=== PATIENT | male | born 1995 | race Caucasian/White ===

== ENCOUNTER 2018-02-22 14:49 | Inpatient (IN) | payer OTHER ==
[2018-02-22 16:08] VITALS: BMI 26.9
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
[2018-02-22] MEDS ORDERED: P-EPHED 60MG/TRIPROLIDI 2.5MG TABLET PO PRN (19:05)
[2018-02-22] MEDS ORDERED: IBUPROFEN 400 MG TABLET (FP) PO PRN (19:05)
[2018-02-22] MEDS ORDERED: LOPERAMIDE HCL 2 MG CAPSULE PO PRN (19:05)
[2018-02-22] MEDS ORDERED: MAGNESIUM HYDROX 2400MG/30ML ORAL SUSPENSION 30 ML CUP PO PRN (19:05)
[2018-02-22] MEDS ORDERED: MAG HYDROX/AL HYDROX/SIMETH 30 ML UNIT-DOSE CUP PO PRN (19:05)
[2018-02-22] MEDS ORDERED: MAGNESIUM CITRATE 300 ML BOTTLE PO PRN (19:05)
[2018-02-22] MEDS ORDERED: hydrOXYzine PAMOATE 25 MG CAPSULE (FP) PO PRN (19:05)
[2018-02-22] MEDS ORDERED: ACETAMINOPHEN 325 MG TABLET (FP) PO PRN (19:05)
[2018-02-22] MEDS ORDERED: MENTHOL/PHENOL 1 EACH UD MM PRN (19:05)
[2018-02-22] MEDS ORDERED: guaiFENesin/D-METHORPHAN HB 10 ML UNIT-DOSE CUPS PO PRN (19:05)
[2018-02-22] MEDS ORDERED: chlordiazePOXIDE HCL 25 MG CAPSULE PO ONE (19:08)
[2018-02-22] MEDS ORDERED: chlordiazePOXIDE HCL 25 MG CAPSULE PO PRN (19:08)
[2018-02-22] MEDS: THIAMINE HCL 100 MG TABLET (FP) PO SCH (21:21)
[2018-02-22] MEDS: traZODone HCL 50 MG TABLET (FP) PO SCH (21:21)
[2018-02-22] MEDS: GABAPENTIN 300 MG CAPSULE (FP) PO SCH (21:21)
[2018-02-22] MEDS: NICOTINE POLACRILEX 4 MG GUM BC PRN (21:23)
[2018-02-22] MEDS: chlordiazePOXIDE HCL 25 MG CAPSULE PO SCH (23:25)
[2018-02-23] MEDS: chlordiazePOXIDE HCL 25 MG CAPSULE PO SCH ×3 (05:46→17:37)
[2018-02-23] MEDS: GABAPENTIN 300 MG CAPSULE (FP) PO SCH ×3 (06:09→22:22)
[2018-02-23] MEDS ORDERED: METHADONE HCL 10 MG TABLET ONE (09:49)
[2018-02-23] MEDS ORDERED: METHADONE HCL 40 MG DISPERSABLE TABLET ONE (09:50)
[2018-02-23] MEDS ORDERED: METHADONE HCL 10 MG TABLET PO ONE (10:00)
[2018-02-23] MEDS ORDERED: METHADONE 40 MG, METHADONE 20 MG PO ONE (10:00)
[2018-02-23] MEDS: PRENATAL VITAMINS W/ FOLIC ACID TABLET (FP) PO SCH (10:03)
[2018-02-23 10:31] LABS: HEMOGLOBIN 13.1 GM/dL (11.7-16.9); MCH 28.2 pg (25.7-33.7); MCHC 32.7 g/dl (32.0-35.9); MEAN CELL VOLUME 86.3 fl (80-96); MEAN PLT VOLUME 9.6 fl (7.5-11.1); PLATELET COUNT 273 K/MM3 (134-434); RBC 4.63 M/mm3 (4.00-5.60); RDW 12.1 % (11.9-15.9); WHITE BLOOD COUNT 4.1 K/mm3 (4.0-10.0)
[2018-02-23 10:32] LABS: ALBUMIN 3.7 g/dl (3.4-5.0); ALK PHOS 65 U/L (45-117); ANION GAP 7 MMOL/L (8-16); BILIRUBIN,TOTAL 0.4 mg/dL (0.2-1); BLOOD UREA NITROGEN 10 mg/dL (7-18); CALCIUM 8.9 mg/dL (8.5-10.1); CHLORIDE 102 mmol/L (98-107); CO2 30 mmol/L (21-32); GLUCOSE,RANDOM 100 mg/dL (74-106); POTASSIUM 3.7 mmol/L (3.5-5.1); SGOT/AST 15 U/L (15-37); SGPT/ALT 26 U/L (13-61); SODIUM 138 mmol/L (136-145); TOT PROT 6.4 g/dl (6.4-8.2)
--- NOTE | 2018-02-23 12:09 | PN ---
[facility] CIWA - CIWA Score Nausea/Vomitin-Mild Nausea/No Vomiting Muscle Tremors: 3 Anxiety: 2 Agitation: 3 Paroxysmal Sweats: 1-Minimal Palms Moist Orientation: 1-Uncertain about Date Tacttile Disturbances: 0-None Auditory Disturbances: 0-None Visual Disturbances: 0-None Headache: 1-Very Mild CIWA-Ar Total Score: 12 S Progress Note (SOAP) Subjective: anxiety restlessness tremor sweating trouble sitting still Objective: 02/23/18 12:07 Vital Signs Temperature 98.2 F 02/23/18 09:17 Pulse Rate 55 L 02/23/18 09:17 Respiratory Rate 18 02/23/18 09:17 Blood Pressure 117/61 02/23/18 09:17 O2 Sat by Pulse Oximetry (%) Laboratory Last Values WBC 4.1 K/mm3 (4.0-10.0) 02/23/18 07:00 RBC 4.63 M/mm3 (4.00-5.60) 02/23/18 07:00 Hgb 13.1 GM/dL (11.7-16.9) 02/23/18 07:00 Hct 40.0 % (35.4-49) 02/23/18 07:00 MCV 86.3 fl (80-96) 02/23/18 07:00 MCH 28.2 pg (25.7-33.7) 02/23/18 07:00 MCHC 32.7 g/dl (32.0-35.9) 02/23/18 07:00 RDW 12.1 % (11.9-15.9) 02/23/18 07:00 Plt Count 273 K/MM3 (134-434) 02/23/18 07:00 MPV 9.6 fl (7.5-11.1) 02/23/18 07:00 Sodium 138 mmol/L (136-145) 02/23/18 07:00 Potassium 3.7 mmol/L (3.5-5.1) 02/23/18 07:00 Chloride 102 mmol/L (98-107) 02/23/18 07:00 Carbon Dioxide 30 mmol/L (21-32) 02/23/18 07:00 Anion Gap 7 MMOL/L (8-16) L 02/23/18 07:00 BUN 10 mg/dL (7-18) 02/23/18 07:00 Creatinine 1.0 mg/dL (0.55-1.3) 02/23/18 07:00 Creat Clearance w eGFR > 60 (>60) 02/23/18 07:00 Random Glucose 100 mg/dL (74-106) 02/23/18 07:00 Calcium 8.9 mg/dL (8.5-10.1) 02/23/18 07:00 Total Bilirubin 0.4 mg/dL (0.2-1) 02/23/18 07:00 AST 15 U/L (15-37) 02/23/18 07:00 ALT 26 U/L (13-61) 02/23/18 07:00 Alkaline Phosphatase 65 U/L (45-117) 02/23/18 07:00 Total Protein 6.4 g/dl (6.4-8.2) 02/23/18 07:00 Albumin 3.7 g/dl (3.4-5.0) 02/23/18 07:00 RPR Titer Nonreactive (NONREACTIVE) 02/23/18 07:00 lab noted Assessment: 02/23/18 12:08 withdrawal sx 02/23/18 12:10 methadone maintenance 60 mg po daily Plan: continue detox
[2018-02-23] MEDS: NICOTINE POLACRILEX 4 MG GUM BC PRN (14:12)
[2018-02-23 15:42] LABS: URINE APPEARANCE CLEAR; URINE BILIRUBIN NEGATIVE (<2.0 mg/dL); URINE COLOR YELLOW; URINE GLUCOSE (UA) NEGATIVE (NEGATIVE); URINE KETONE NEGATIVE (NEGATIVE); URINE LEUK ESTERASE TRACE (NEGATIVE); URINE NITRITE NEGATIVE (NEGATIVE); URINE PROTEIN NEGATIVE (NEGATIVE); URINE UROBILINOGEN NEGATIVE mg/dL (0.2-1.0)
[2018-02-23 15:51] LABS: EPI CELLS RARE /HPF (FEW); URINE MUCUS RARE
[2018-02-23] MEDS: chlordiazePOXIDE 5 MG CAPSULE PO SCH (22:22)
[2018-02-23] MEDS: MELATONIN 5 MG TABLETS PO PRN (22:22)
[2018-02-23] MEDS: traZODone HCL 50 MG TABLET (FP) PO SCH (22:22)
[2018-02-23] MEDS: THIAMINE HCL 100 MG TABLET (FP) PO SCH (22:22)
[2018-02-24] MEDS ORDERED: METHADONE HCL 10 MG TABLET ONE (04:13)
[2018-02-24] MEDS ORDERED: METHADONE HCL 40 MG DISPERSABLE TABLET ONE (04:13)
[2018-02-24] MEDS ORDERED: METHADONE HCL 10 MG TABLET PO SCH (06:00)
[2018-02-24] MEDS: chlordiazePOXIDE 5 MG CAPSULE PO SCH ×3 (06:07→16:56)
[2018-02-24] MEDS: METHADONE 40 MG, METHADONE 20 MG PO SCH (06:07)
[2018-02-24] MEDS: GABAPENTIN 300 MG CAPSULE (FP) PO SCH ×3 (06:08→21:52)
[2018-02-24] MEDS: PRENATAL VITAMINS W/ FOLIC ACID TABLET (FP) PO SCH (10:21)
--- NOTE | 2018-02-24 14:32 | PN ---
[facility] CIWA - CIWA Score Nausea/Vomitin-No Nausea/No Vomiting Muscle Tremors: 2 Anxiety: 3 Agitation: 2 Paroxysmal Sweats: 1-Minimal Palms Moist Orientation: 0-Oriented Tacttile Disturbances: 0-None Auditory Disturbances: 0-None Visual Disturbances: 0-None Headache: 2-Mild CIWA-Ar Total Score: 10 S Progress Note (SOAP) Subjective: anxiety restlessness tremor mild gi distress otherwise feeling ok Objective: 02/24/18 14:32 Vital Signs Temperature 97.1 F L 02/24/18 13:10 Pulse Rate 83 02/24/18 13:10 Respiratory Rate 18 02/24/18 13:10 Blood Pressure 115/71 02/24/18 13:10 O2 Sat by Pulse Oximetry (%) Laboratory Last Values WBC 4.1 K/mm3 (4.0-10.0) 02/23/18 07:00 RBC 4.63 M/mm3 (4.00-5.60) 02/23/18 07:00 Hgb 13.1 GM/dL (11.7-16.9) 02/23/18 07:00 Hct 40.0 % (35.4-49) 02/23/18 07:00 MCV 86.3 fl (80-96) 02/23/18 07:00 MCH 28.2 pg (25.7-33.7) 02/23/18 07:00 MCHC 32.7 g/dl (32.0-35.9) 02/23/18 07:00 RDW 12.1 % (11.9-15.9) 02/23/18 07:00 Plt Count 273 K/MM3 (134-434) 02/23/18 07:00 MPV 9.6 fl (7.5-11.1) 02/23/18 07:00 Sodium 138 mmol/L (136-145) 02/23/18 07:00 Potassium 3.7 mmol/L (3.5-5.1) 02/23/18 07:00 Chloride 102 mmol/L (98-107) 02/23/18 07:00 Carbon Dioxide 30 mmol/L (21-32) 02/23/18 07:00 Anion Gap 7 MMOL/L (8-16) L 02/23/18 07:00 BUN 10 mg/dL (7-18) 02/23/18 07:00 Creatinine 1.0 mg/dL (0.55-1.3) 02/23/18 07:00 Creat Clearance w eGFR > 60 (>60) 02/23/18 07:00 Random Glucose 100 mg/dL (74-106) 02/23/18 07:00 Calcium 8.9 mg/dL (8.5-10.1) 02/23/18 07:00 Total Bilirubin 0.4 mg/dL (0.2-1) 02/23/18 07:00 AST 15 U/L (15-37) 02/23/18 07:00 ALT 26 U/L (13-61) 02/23/18 07:00 Alkaline Phosphatase 65 U/L (45-117) 02/23/18 07:00 Total Protein 6.4 g/dl (6.4-8.2) 02/23/18 07:00 Albumin 3.7 g/dl (3.4-5.0) 02/23/18 07:00 Urine Color Yellow 02/22/18 11:45 Urine Appearance Clear 02/22/18 11:45 Urine pH 7.0 (5.0-8.0) 02/22/18 11:45 Ur Specific [place] 1.021 (1.010-1.035) 02/22/18 11:45 Urine Protein Negative (NEGATIVE) 02/22/18 11:45 Urine Glucose (UA) Negative (NEGATIVE) 02/22/18 11:45 Urine Ketones Negative (NEGATIVE) 02/22/18 11:45 Urine Blood Negative (NEGATIVE) 02/22/18 11:45 Urine Nitrite Negative (NEGATIVE) 02/22/18 11:45 Urine Bilirubin Negative (<2.0 mg/dL) 02/22/18 11:45 Urine Urobilinogen Negative mg/dL (0.2-1.0) 02/22/18 11:45 Ur Leukocyte Esterase Trace (NEGATIVE) 02/22/18 11:45 Urine WBC (Auto) <1 /hpf (3-5) 02/22/18 11:45 Urine RBC (Auto) 1 /hpf (0-3) 02/22/18 11:45 Ur Epithelial Cells Rare /HPF (FEW) 02/22/18 11:45 Urine Mucus Rare 02/22/18 11:45 RPR Titer Nonreactive (NONREACTIVE) 02/23/18 07:00 lab noted Assessment: 02/24/18 14:32 withdrawal sx Plan: continue detox
[2018-02-24] MEDS: NICOTINE POLACRILEX 4 MG GUM BC PRN (17:36)
[2018-02-24] MEDS: THIAMINE HCL 100 MG TABLET (FP) PO SCH (21:52)
[2018-02-24] MEDS: traZODone HCL 50 MG TABLET (FP) PO SCH (21:52)
[2018-02-24] MEDS: MELATONIN 5 MG TABLETS PO PRN (21:53)
[2018-02-24] MEDS: chlordiazePOXIDE HCL 10 MG CAPSULE PO SCH (22:16)
[2018-02-25] MEDS ORDERED: METHADONE HCL 40 MG DISPERSABLE TABLET ONE (03:18)
[2018-02-25] MEDS ORDERED: METHADONE HCL 10 MG TABLET ONE (03:18)
[2018-02-25] MEDS: GABAPENTIN 300 MG CAPSULE (FP) PO SCH ×3 (05:44→22:00)
[2018-02-25] MEDS: chlordiazePOXIDE HCL 10 MG CAPSULE PO SCH ×3 (05:44→17:01)
[2018-02-25] MEDS: METHADONE 40 MG, METHADONE 20 MG PO SCH (05:45)
[2018-02-25] MEDS: PRENATAL VITAMINS W/ FOLIC ACID TABLET (FP) PO SCH (10:05)
--- NOTE | 2018-02-25 11:40 | PN ---
S Progress Note (SOAP) Subjective: patient preferred taking methadone 60 mg at 10 am feeling better less tremor little sweat tolerated food and fluid better Objective: 02/25/18 11:43 Vital Signs Temperature 97.7 F 02/25/18 09:51 Pulse Rate 77 02/25/18 09:51 Respiratory Rate 16 02/25/18 09:51 Blood Pressure 123/56 L 02/25/18 09:51 O2 Sat by Pulse Oximetry (%) Laboratory Last Values WBC 4.1 K/mm3 (4.0-10.0) 02/23/18 07:00 RBC 4.63 M/mm3 (4.00-5.60) 02/23/18 07:00 Hgb 13.1 GM/dL (11.7-16.9) 02/23/18 07:00 Hct 40.0 % (35.4-49) 02/23/18 07:00 MCV 86.3 fl (80-96) 02/23/18 07:00 MCH 28.2 pg (25.7-33.7) 02/23/18 07:00 MCHC 32.7 g/dl (32.0-35.9) 02/23/18 07:00 RDW 12.1 % (11.9-15.9) 02/23/18 07:00 Plt Count 273 K/MM3 (134-434) 02/23/18 07:00 MPV 9.6 fl (7.5-11.1) 02/23/18 07:00 Sodium 138 mmol/L (136-145) 02/23/18 07:00 Potassium 3.7 mmol/L (3.5-5.1) 02/23/18 07:00 Chloride 102 mmol/L (98-107) 02/23/18 07:00 Carbon Dioxide 30 mmol/L (21-32) 02/23/18 07:00 Anion Gap 7 MMOL/L (8-16) L 02/23/18 07:00 BUN 10 mg/dL (7-18) 02/23/18 07:00 Creatinine 1.0 mg/dL (0.55-1.3) 02/23/18 07:00 Creat Clearance w eGFR > 60 (>60) 02/23/18 07:00 Random Glucose 100 mg/dL (74-106) 02/23/18 07:00 Calcium 8.9 mg/dL (8.5-10.1) 02/23/18 07:00 Total Bilirubin 0.4 mg/dL (0.2-1) 02/23/18 07:00 AST 15 U/L (15-37) 02/23/18 07:00 ALT 26 U/L (13-61) 02/23/18 07:00 Alkaline Phosphatase 65 U/L (45-117) 02/23/18 07:00 Total Protein 6.4 g/dl (6.4-8.2) 02/23/18 07:00 Albumin 3.7 g/dl (3.4-5.0) 02/23/18 07:00 Urine Color Yellow 02/22/18 11:45 Urine Appearance Clear 02/22/18 11:45 Urine pH 7.0 (5.0-8.0) 02/22/18 11:45 Ur Specific [place] 1.021 (1.010-1.035) 02/22/18 11:45 Urine Protein Negative (NEGATIVE) 02/22/18 11:45 Urine Glucose (UA) Negative (NEGATIVE) 02/22/18 11:45 Urine Ketones Negative (NEGATIVE) 02/22/18 11:45 Urine Blood Negative (NEGATIVE) 02/22/18 11:45 Urine Nitrite Negative (NEGATIVE) 02/22/18 11:45 Urine Bilirubin Negative (<2.0 mg/dL) 02/22/18 11:45 Urine Urobilinogen Negative mg/dL (0.2-1.0) 02/22/18 11:45 Ur Leukocyte Esterase Trace (NEGATIVE) 02/22/18 11:45 Urine WBC (Auto) <1 /hpf (3-5) 02/22/18 11:45 Urine RBC (Auto) 1 /hpf (0-3) 02/22/18 11:45 Ur Epithelial Cells Rare /HPF (FEW) 02/22/18 11:45 Urine Mucus Rare 02/22/18 11:45 RPR Titer Nonreactive (NONREACTIVE) 02/23/18 07:00 lab noted Assessment: 02/25/18 11:44 mild withdrawal sx Plan: continue detox
[2018-02-25] MEDS: NICOTINE POLACRILEX 4 MG GUM BC PRN ×2 (15:27→17:02)
[2018-02-25] MEDS: traZODone HCL 50 MG TABLET (FP) PO SCH (21:59)
[2018-02-25] MEDS: THIAMINE HCL 100 MG TABLET (FP) PO SCH (21:59)
[2018-02-25] MEDS: MELATONIN 5 MG TABLETS PO PRN (22:00)
[2018-02-25] MEDS: chlordiazePOXIDE 5 MG CAPSULE PO SCH (22:00)
[2018-02-26] MEDS: chlordiazePOXIDE 5 MG CAPSULE PO SCH (06:18)
[2018-02-26] MEDS: GABAPENTIN 300 MG CAPSULE (FP) PO SCH (06:18)
[2018-02-26 09:10] VITALS: BP 115/63; PULSE 76; TEMP 98.1
[2018-02-26] MEDS ORDERED: METHADONE HCL 40 MG DISPERSABLE TABLET ONE (09:38)
[2018-02-26] MEDS ORDERED: METHADONE HCL 10 MG TABLET ONE (09:38)
[2018-02-26] MEDS ORDERED: METHADONE 40 MG, METHADONE 20 MG PO SCH (10:00)
[2018-02-26] MEDS: PRENATAL VITAMINS W/ FOLIC ACID TABLET (FP) PO SCH (10:03)
--- NOTE | 2018-02-26 17:29 | DS ---
[facility] Detox Discharge Summary Admission Date: 02/22/18 Discharge Date: 02/26/18 - History Present History: Alcohol Dependence, Cocaine Dependence, Opioid Dependence, MMTP Additional Comments: PATIENT RETURNING HOME FOR TIME BEING TO ATTEND TO PERSONAL AFFAIRS. PATIENT REPORTS THAT HE WILL PURSUE REHAB ADMISSION AT SOME POINT IN THE NEAR FUTURE. PATIENT WAS DISCHARGED FROM DETOX UNIT IN STABLE MEDICAL CONDITION. Pertinent Past History: History of Depression, Nicotine Dependence, M.M.T.P. - Physical Exam Results Vital Signs: Vital Signs Temperature 98.1 F 02/26/18 09:06 Pulse Rate 76 02/26/18 09:06 Respiratory Rate 18 02/26/18 09:06 Blood Pressure 115/63 02/26/18 09:06 O2 Sat by Pulse Oximetry (%) Pertinent Admission Physical Exam Findings: WITHDRAWAL SYMPTOMS. Laboratory Tests 02/22/18 02/23/18 02/23/18 11:45 07:00 07:00 WBC 4.1 RBC 4.63 Hgb 13.1 Hct 40.0 MCV 86.3 MCH 28.2 MCHC 32.7 RDW 12.1 Plt Count 273 MPV 9.6 Sodium 138 Potassium 3.7 Chloride 102 Carbon Dioxide 30 Anion Gap 7 L BUN 10 Creatinine 1.0 Creat Clearance w eGFR > 60 Random Glucose 100 Calcium 8.9 Total Bilirubin 0.4 AST 15 ALT 26 Alkaline Phosphatase 65 Total Protein 6.4 Albumin 3.7 Urine Color Yellow Urine Appearance Clear Urine pH 7.0 Ur Specific [place] 1.021 Urine Protein Negative Urine Glucose (UA) Negative Urine Ketones Negative Urine Blood Negative Urine Nitrite Negative Urine Bilirubin Negative Urine Urobilinogen Negative Ur Leukocyte Esterase Trace Urine WBC (Auto) <1 Urine RBC (Auto) 1 Ur Epithelial Cells Rare Urine Mucus Rare RPR Titer 02/23/18 07:00 WBC RBC Hgb Hct MCV MCH MCHC RDW Plt Count MPV Sodium Potassium Chloride Carbon Dioxide Anion Gap BUN Creatinine Creat Clearance w eGFR Random Glucose Calcium Total Bilirubin AST ALT Alkaline Phosphatase Total Protein Albumin Urine Color Urine Appearance Urine pH Ur Specific [place] Urine Protein Urine Glucose (UA) Urine Ketones Urine Blood Urine Nitrite Urine Bilirubin Urine Urobilinogen Ur Leukocyte Esterase Urine WBC (Auto) Urine RBC (Auto) Ur Epithelial Cells Urine Mucus RPR Titer Nonreactive LABS NOTED. - Treatment Hospital Course: Detox Protocol Followed, Detoxed Safely, Responded well, Discharged Condition Good Patient has Accepted a Rehab Referral to: PATIENT WILL PURSUE REHAB ADMISSION ON HIS OWN IN NEAR FUTURE. - Medication Discharge Medications: Ambulatory Orders Gabapentin [Neurontin -] 300 mg PO TID 02/22/18 hydrOXYzine PAMOATE [Vistaril -] 25 mg PO TID 02/22/18 traZODone HCL [Trazodone HCl] 50 mg PO HS 02/22/18 Methadone [Dolophine -] 60 mg PO DAILY 02/23/18 - Diagnosis (1) Alcohol use disorder Status: Acute (2) Cocaine use disorder Status: Acute (3) Nicotine use disorder Status: Acute (4) Opioid dependence on agonist therapy Status: Chronic (5) Opioid use disorder Status: Acute - AMA Did Patient Leave Against Medical Advice: No
== END 2018-02-26 10:37 | disposition home or self-care (01) | DRG 773 ==
LOC: YASAS 14:49 → Y3N 19:45
PROC: HZ2ZZZZ Detoxification Services for Substance Abuse Treatment (ICD-10-PCS; principal; 2018-02-22)
DX: F10.230 Alcohol dependence with withdrawal, uncomplicated (principal); F11.20 Opioid dependence, uncomplicated; F14.20 Cocaine dependence, uncomplicated; F17.210 Nicotine dependence, cigarettes, uncomplicated
CPT/HCPCS: 36415; 80053; 81003; 81015; 85027; 86593

== ENCOUNTER 2019-08-08 10:21 | Inpatient (IN) | payer OTHER ==
[2019-08-08] MEDS ORDERED: ONDANSETRON *ODT* 4 MG TABLET SL PRN (12:05)
[2019-08-08] MEDS ORDERED: MAG HYDROX/AL HYDROX/SIMETH 30 ML UNIT-DOSE CUP PO PRN (12:05)
[2019-08-08] MEDS ORDERED: NICOTINE POLACRILEX 2 MG GUM BUC PRN (12:05)
[2019-08-08] MEDS ORDERED: BISMUTH SUBSALICYLATE 262 MG/15 ML BTL PO PRN (12:05)
[2019-08-08] MEDS ORDERED: MENTHOL/PHENOL 1 EACH UD MM PRN (12:05)
[2019-08-08] MEDS ORDERED: MAGNESIUM HYDROX 2400MG/30ML ORAL SUSPENSION 30 ML CUP PO PRN (12:05)
[2019-08-08] MEDS ORDERED: ACETAMINOPHEN 325 MG TABLET (FP) PO PRN ×2 (12:05)
[2019-08-08] MEDS ORDERED: MAGNESIUM CITRATE 300 ML BOTTLE PO PRN (12:05)
[2019-08-08] MEDS ORDERED: IBUPROFEN 400 MG TABLET (FP) PO PRN (12:05)
[2019-08-08] MEDS ORDERED: METHOCARBAMOL 500 MG TABLET PO PRN (12:05)
[2019-08-08 12:20] VITALS: BMI 20.5
[2019-08-08] MEDS ORDERED: hydrOXYzine PAMOATE 25 MG CAPSULE (FP) PO PRN (12:35)
[2019-08-08] MEDS ORDERED: hydrOXYzine PAMOATE 25 MG CAPSULE (FP) PO SCH (14:00)
[2019-08-08 14:06] LABS: HEMATOCRIT 36.7 % (35.4-49); HEMOGLOBIN 12.3 GM/dL (11.7-16.9); MCH 27.8 pg (25.7-33.7); MCHC 33.4 g/dl (32.0-35.9); MEAN CELL VOLUME 83.3 fl (80-96); MEAN PLT VOLUME 8.4 fl (7.5-11.1); PLATELET COUNT 277 K/MM3 (134-434); RDW 14.2 % (11.9-15.9); WHITE BLOOD COUNT 5.2 K/mm3 (4.0-10.0)
[2019-08-08 14:13] LABS: ALBUMIN 3.7 g/dl (3.4-5.0); BILIRUBIN,TOTAL 0.4 mg/dL (0.2-1); BLOOD UREA NITROGEN 17.8 mg/dL (7-18); CALCIUM 9.1 mg/dL (8.5-10.1); CREATININE 0.9 mg/dL (0.55-1.3); POTASSIUM 3.5 mmol/L (3.5-5.1); TOT PROT 6.8 g/dl (6.4-8.2)
[2019-08-08] MEDS: PRENATAL VITAMINS W/ FOLIC ACID TABLET (FP) PO SCH (14:35)
[2019-08-08] MEDS: AMOXICILLIN 500 MG CAPSULE (FP) PO SCH ×2 (14:36→22:01)
[2019-08-08] MEDS: NICOTINE 21 MG/24 HOURS TOPICAL PATCH TD SCH (14:37)
[2019-08-08] MEDS: chlordiazePOXIDE HCL 25 MG CAPSULE PO PRN (14:44)
[2019-08-08] MEDS: chlordiazePOXIDE HCL 25 MG CAPSULE PO SCH ×2 (17:33→22:02)
[2019-08-08] MEDS: MELATONIN 5 MG TABLETS PO SCH (22:02)
[2019-08-08] MEDS: THIAMINE HCL 100 MG TABLET (FP) PO SCH (22:02)
[2019-08-08] MEDS: DOXEPIN HCL 50 MG CAPSULE PO SCH (22:02)
[2019-08-09] MEDS: AMOXICILLIN 500 MG CAPSULE (FP) PO SCH ×3 (05:29→22:00)
[2019-08-09] MEDS: chlordiazePOXIDE HCL 25 MG CAPSULE PO SCH ×4 (05:29→22:00)
[2019-08-09] MEDS: METHADONE HCL 40 MG DISPERSABLE TABLET PO SCH (05:30)
[2019-08-09] MEDS: PRENATAL VITAMINS W/ FOLIC ACID TABLET (FP) PO SCH (10:30)
[2019-08-09] MEDS: NICOTINE 21 MG/24 HOURS TOPICAL PATCH TD SCH (10:31)
[2019-08-09] MEDS: chlordiazePOXIDE HCL 25 MG CAPSULE PO PRN (19:47)
[2019-08-09] MEDS: THIAMINE HCL 100 MG TABLET (FP) PO SCH (22:00)
[2019-08-09] MEDS: DOXEPIN HCL 50 MG CAPSULE PO SCH (22:01)
[2019-08-09] MEDS: MELATONIN 5 MG TABLETS PO SCH (22:02)
[2019-08-10] MEDS: chlordiazePOXIDE HCL 25 MG CAPSULE PO SCH ×4 (06:10→23:16)
[2019-08-10] MEDS: METHADONE HCL 40 MG DISPERSABLE TABLET PO SCH (06:11)
[2019-08-10] MEDS: AMOXICILLIN 500 MG CAPSULE (FP) PO SCH ×3 (06:11→23:17)
[2019-08-10] MEDS: PRENATAL VITAMINS W/ FOLIC ACID TABLET (FP) PO SCH (10:11)
[2019-08-10] MEDS: NICOTINE 21 MG/24 HOURS TOPICAL PATCH TD SCH (10:11)
[2019-08-10] MEDS ORDERED: MELATONIN 5 MG TABLETS PO PRN (11:51)
[2019-08-10] MEDS: chlordiazePOXIDE HCL 25 MG CAPSULE PO PRN ×2 (14:38→20:51)
[2019-08-10] MEDS: THIAMINE HCL 100 MG TABLET (FP) PO SCH (23:16)
[2019-08-10] MEDS: DOXEPIN HCL 50 MG CAPSULE PO SCH (23:17)
[2019-08-11] MEDS ORDERED: chlordiazePOXIDE HCL 10 MG CAPSULE PO PRN
[2019-08-11] MEDS: AMOXICILLIN 500 MG CAPSULE (FP) PO SCH ×3 (05:55→22:26)
[2019-08-11] MEDS: chlordiazePOXIDE HCL 10 MG CAPSULE PO SCH ×4 (05:55→22:26)
[2019-08-11] MEDS: METHADONE HCL 40 MG DISPERSABLE TABLET PO SCH (05:56)
[2019-08-11] MEDS ORDERED: chlordiazePOXIDE HCL 25 MG CAPSULE PO ONE (09:21)
[2019-08-11] MEDS ORDERED: DICYCLOMINE HCL 10 MG CAPSULE PO ONE (09:21)
[2019-08-11] MEDS: PRENATAL VITAMINS W/ FOLIC ACID TABLET (FP) PO SCH (10:26)
[2019-08-11] MEDS: NICOTINE 21 MG/24 HOURS TOPICAL PATCH TD SCH (10:26)
[2019-08-11] MEDS: FAMOTIDINE 20 MG TABLET PO SCH ×2 (10:27→22:26)
[2019-08-11] MEDS: THIAMINE HCL 100 MG TABLET (FP) PO SCH (22:26)
[2019-08-11] MEDS: DOXEPIN HCL 50 MG CAPSULE PO SCH (22:26)
[2019-08-12] MEDS ORDERED: chlordiazePOXIDE HCL 10 MG CAPSULE PO SCH (05:00)
[2019-08-12] MEDS: AMOXICILLIN 500 MG CAPSULE (FP) PO SCH (05:52)
[2019-08-12] MEDS: METHADONE HCL 40 MG DISPERSABLE TABLET PO SCH (05:52)
[2019-08-12 06:20] VITALS: BP 118/62
[2019-08-12 08:51] VITALS: PULSE 87; TEMP 97.1
[2019-08-12] MEDS: FAMOTIDINE 20 MG TABLET PO SCH (10:31)
[2019-08-12] MEDS: PRENATAL VITAMINS W/ FOLIC ACID TABLET (FP) PO SCH (10:31)
[2019-08-12] MEDS: NICOTINE 21 MG/24 HOURS TOPICAL PATCH TD SCH (10:31)
[2019-08-12] MEDS ORDERED: chlordiazePOXIDE 5 MG CAPSULE PO ONE (10:58)
[2019-08-13] MEDS ORDERED: chlordiazePOXIDE HCL 10 MG CAPSULE PO ONE (05:00)
== END 2019-08-12 11:41 | disposition other institution (70) | DRG 773 ==
LOC: YASAS 10:21 → Y6N 12:17 → Y3N 08-09 10:58
PROVIDERS: ADMIT Allergy & Immunology; ATTEND Allergy & Immunology
PROC: HZ2ZZZZ Detoxification Services for Substance Abuse Treatment (ICD-10-PCS; principal; 2019-08-08)
DX: F10.230 Alcohol dependence with withdrawal, uncomplicated (principal); F11.20 Opioid dependence, uncomplicated; F14.20 Cocaine dependence, uncomplicated; F17.210 Nicotine dependence, cigarettes, uncomplicated; F19.282 Other psychoactive substance dependence with psychoactive substance-induced sleep disorder; B18.2 Chronic viral hepatitis C; Z62.810 Personal history of physical and sexual abuse in childhood; Z59.0 Homelessness
CPT/HCPCS: 36415; 80053; 85027; 86780; 93005; 93010; Q0162; U0003

== ENCOUNTER 2019-08-12 11:40 | Inpatient (IN) | payer OTHER ==
[2019-08-12] MEDS ORDERED: LOPERAMIDE HCL 2 MG CAPSULE PO PRN (12:29)
[2019-08-12] MEDS ORDERED: IBUPROFEN 400 MG TABLET (FP) PO PRN (12:29)
[2019-08-12] MEDS ORDERED: ACETAMINOPHEN 325 MG TABLET (FP) PO PRN (12:29)
[2019-08-12] MEDS ORDERED: P-EPHED 60MG/TRIPROLIDI 2.5MG TABLET PO PRN (12:29)
[2019-08-12] MEDS ORDERED: NICOTINE POLACRILEX 2 MG GUM BUC PRN (12:29)
[2019-08-12] MEDS ORDERED: MAGNESIUM CITRATE 300 ML BOTTLE PO PRN (12:29)
[2019-08-12] MEDS ORDERED: MAGNESIUM HYDROX 2400MG/30ML ORAL SUSPENSION 30 ML CUP PO PRN (12:29)
[2019-08-12] MEDS ORDERED: guaiFENesin 200 MG/10 ML 10 ML UNIT-DOSE CUPS PO PRN (12:29)
[2019-08-12] MEDS ORDERED: MENTHOL/PHENOL 1 EACH UD MM PRN (12:29)
[2019-08-12] MEDS ORDERED: MAG HYDROX/AL HYDROX/SIMETH 30 ML UNIT-DOSE CUP PO PRN (12:29)
--- NOTE | 2019-08-12 12:29 | HP ---
[facility] Rehab Assess/Revision - Admission History Admitted to Rehab from: [facility] Date of Admission to Rehab: 08/12/2019 - Vital signs Vital Signs: Vital Signs Period Temp Pulse Resp BP Sys/Morgan Pulse Ox Last 24 Hr 96.7 F 87 17 120/68 - Findings Detox History & Physical reviewed: Yes Concur with findings: Yes Inpatient Rehab Admission - Rehab Decision to Admit Inpatient rehab admission?: Yes - Initial Determination Are CD services needed?: Yes Free of communicable disease: Yes Not in need of hospitalization: Yes - Rehab Admission Criteria Previous failed treatment: Yes Poor recovery environment: Yes Comorbidities: Yes Lacks judgement: No Patient is meeting Inpatient Rehab admission criteria:: Yes
[2019-08-12] MEDS: AMOXICILLIN 500 MG CAPSULE (FP) PO SCH ×2 (14:03→21:48)
[2019-08-12] MEDS ORDERED: PT OWN MED DRAWER 7, Y5N ONE (20:49)
[2019-08-12] MEDS: MELATONIN 5 MG TABLETS PO SCH (21:47)
[2019-08-12] MEDS: THIAMINE HCL 100 MG TABLET (FP) PO SCH (21:47)
[2019-08-12] MEDS: DOXEPIN HCL 50 MG CAPSULE PO SCH (21:49)
[2019-08-12] MEDS: FAMOTIDINE 20 MG TABLET PO SCH (21:49)
[2019-08-13] MEDS ORDERED: PT OWN MED DRAWER 7, Y5N ONE ×2 (03:15→19:11)
[2019-08-13] MEDS: METHADONE HCL 40 MG DISPERSABLE TABLET PO SCH (06:57)
[2019-08-13] MEDS: AMOXICILLIN 500 MG CAPSULE (FP) PO SCH ×3 (06:58→21:20)
[2019-08-13] MEDS: NICOTINE 7 MG/24 HOURS TOPICAL PATCH TD SCH (09:36)
[2019-08-13] MEDS: FAMOTIDINE 20 MG TABLET PO SCH ×2 (09:36→21:21)
[2019-08-13] MEDS: PRENATAL VITAMINS W/ FOLIC ACID TABLET (FP) PO SCH (09:36)
[2019-08-13] MEDS: MELATONIN 5 MG TABLETS PO SCH (21:21)
[2019-08-13] MEDS: DOXEPIN HCL 50 MG CAPSULE PO SCH (21:21)
[2019-08-13] MEDS: THIAMINE HCL 100 MG TABLET (FP) PO SCH (21:22)
[2019-08-14] MEDS ORDERED: PT OWN MED DRAWER 7, Y5N ONE ×2 (02:46→18:50)
[2019-08-14] MEDS: AMOXICILLIN 500 MG CAPSULE (FP) PO SCH ×3 (07:10→21:00)
[2019-08-14] MEDS: METHADONE HCL 40 MG DISPERSABLE TABLET PO SCH (07:11)
[2019-08-14] MEDS: NICOTINE 7 MG/24 HOURS TOPICAL PATCH TD SCH (09:11)
[2019-08-14] MEDS: FAMOTIDINE 20 MG TABLET PO SCH ×2 (09:12→21:00)
[2019-08-14] MEDS: PRENATAL VITAMINS W/ FOLIC ACID TABLET (FP) PO SCH (09:12)
[2019-08-14] MEDS ORDERED: METHADONE HCL 40 MG DISPERSABLE TABLET PO SCH (10:00)
[2019-08-14] MEDS: MELATONIN 5 MG TABLETS PO SCH (21:00)
[2019-08-14] MEDS: DOXEPIN HCL 50 MG CAPSULE PO SCH (21:00)
[2019-08-14] MEDS: THIAMINE HCL 100 MG TABLET (FP) PO SCH (21:00)
[2019-08-15] MEDS: AMOXICILLIN 500 MG CAPSULE (FP) PO SCH ×2 (06:26→14:15)
[2019-08-15] MEDS: METHADONE HCL 40 MG DISPERSABLE TABLET PO SCH (06:37)
[2019-08-15] MEDS: PRENATAL VITAMINS W/ FOLIC ACID TABLET (FP) PO SCH (09:34)
[2019-08-15] MEDS: NICOTINE 7 MG/24 HOURS TOPICAL PATCH TD SCH (09:34)
[2019-08-15] MEDS: FAMOTIDINE 20 MG TABLET PO SCH ×2 (09:35→21:31)
[2019-08-15] MEDS ORDERED: PT OWN MED DRAWER 7, Y5N ONE ×4 (13:55→22:05)
--- NOTE | 2019-08-15 14:23 | PN ---
S Progress Note Note: Patient evaluated for white plaque to posterior tongue. Denies pain, sore throat and oral lesions. Vital Signs Temperature 97 F L 08/15/19 06:15 Pulse Rate 85 08/15/19 06:15 Respiratory Rate 16 08/15/19 06:15 Blood Pressure 114/66 08/15/19 06:15 O2 Sat by Pulse Oximetry (%) 96 08/15/19 06:15 PE alert and oriented x 3 skin warm and dry mouth oral mucosa pink and moist, +white plaque to posterior tongue, pharynx reddened A/P: oral thrush Mycelox chloé ordered monitor clinically
[2019-08-15] MEDS: CLOTRIMAZOLE 10 MG TROCHE PO SCH ×2 (18:30→21:31)
[2019-08-15] MEDS: MELATONIN 5 MG TABLETS PO SCH (21:31)
[2019-08-15] MEDS: THIAMINE HCL 100 MG TABLET (FP) PO SCH (21:31)
[2019-08-15] MEDS: DOXEPIN HCL 50 MG CAPSULE PO SCH (23:00)
[2019-08-16] MEDS: CLOTRIMAZOLE 10 MG TROCHE PO SCH ×5 (06:32→21:12)
[2019-08-16] MEDS: METHADONE HCL 40 MG DISPERSABLE TABLET PO SCH (06:32)
[2019-08-16] MEDS ORDERED: PT OWN MED DRAWER 7, Y5N ONE ×2 (08:32→17:10)
[2019-08-16] MEDS: NICOTINE 7 MG/24 HOURS TOPICAL PATCH TD SCH (09:34)
[2019-08-16] MEDS: FAMOTIDINE 20 MG TABLET PO SCH ×2 (09:34→21:12)
[2019-08-16] MEDS: PRENATAL VITAMINS W/ FOLIC ACID TABLET (FP) PO SCH (09:34)
[2019-08-16] MEDS: MELATONIN 5 MG TABLETS PO SCH (21:12)
[2019-08-16] MEDS: THIAMINE HCL 100 MG TABLET (FP) PO SCH (21:12)
[2019-08-16] MEDS: DOXEPIN HCL 50 MG CAPSULE PO SCH (21:13)
[2019-08-17] MEDS ORDERED: PT OWN MED DRAWER 7, Y5N ONE ×3 (02:46→21:09)
[2019-08-17] MEDS: METHADONE HCL 40 MG DISPERSABLE TABLET PO SCH (07:30)
[2019-08-17] MEDS: CLOTRIMAZOLE 10 MG TROCHE PO SCH ×5 (07:30→21:10)
[2019-08-17] MEDS: FAMOTIDINE 20 MG TABLET PO SCH ×2 (09:39→21:09)
[2019-08-17] MEDS: PRENATAL VITAMINS W/ FOLIC ACID TABLET (FP) PO SCH (09:39)
[2019-08-17] MEDS: NICOTINE 7 MG/24 HOURS TOPICAL PATCH TD SCH (09:40)
[2019-08-17] MEDS: THIAMINE HCL 100 MG TABLET (FP) PO SCH (21:09)
[2019-08-17] MEDS: MELATONIN 5 MG TABLETS PO SCH (21:09)
[2019-08-17] MEDS: DOXEPIN HCL 50 MG CAPSULE PO SCH (21:10)
[2019-08-18] MEDS ORDERED: PT OWN MED DRAWER 7, Y5N ONE ×3 (03:14→13:40)
[2019-08-18] MEDS: METHADONE HCL 40 MG DISPERSABLE TABLET PO SCH (06:21)
[2019-08-18] MEDS: CLOTRIMAZOLE 10 MG TROCHE PO SCH ×5 (06:22→21:12)
[2019-08-18] MEDS: FAMOTIDINE 20 MG TABLET PO SCH ×2 (10:39→21:14)
[2019-08-18] MEDS: PRENATAL VITAMINS W/ FOLIC ACID TABLET (FP) PO SCH (10:39)
[2019-08-18] MEDS: NICOTINE 7 MG/24 HOURS TOPICAL PATCH TD SCH (10:39)
[2019-08-18] MEDS: THIAMINE HCL 100 MG TABLET (FP) PO SCH (21:12)
[2019-08-18] MEDS: MELATONIN 5 MG TABLETS PO SCH (21:13)
[2019-08-18] MEDS: DOXEPIN HCL 50 MG CAPSULE PO SCH (21:14)
[2019-08-19] MEDS ORDERED: PT OWN MED DRAWER 7, Y5N ONE ×6 (03:18→22:10)
[2019-08-19] MEDS: CLOTRIMAZOLE 10 MG TROCHE PO SCH ×5 (06:39→21:26)
[2019-08-19] MEDS: METHADONE HCL 40 MG DISPERSABLE TABLET PO SCH (09:06)
[2019-08-19] MEDS: FAMOTIDINE 20 MG TABLET PO SCH ×2 (09:08→21:26)
[2019-08-19] MEDS: NICOTINE 7 MG/24 HOURS TOPICAL PATCH TD SCH (09:08)
[2019-08-19] MEDS: PRENATAL VITAMINS W/ FOLIC ACID TABLET (FP) PO SCH (09:28)
[2019-08-19] MEDS: THIAMINE HCL 100 MG TABLET (FP) PO SCH (21:26)
[2019-08-19] MEDS: MELATONIN 5 MG TABLETS PO SCH (21:26)
[2019-08-19] MEDS: DOXEPIN HCL 25 MG CAPSULE PO SCH (22:10)
[2019-08-20] MEDS ORDERED: PT OWN MED DRAWER 7, Y5N ONE (05:21)
[2019-08-20] MEDS: CLOTRIMAZOLE 10 MG TROCHE PO SCH ×4 (07:17→21:11)
[2019-08-20] MEDS: METHADONE HCL 40 MG DISPERSABLE TABLET PO SCH (09:51)
[2019-08-20] MEDS: PRENATAL VITAMINS W/ FOLIC ACID TABLET (FP) PO SCH (09:54)
[2019-08-20] MEDS: FAMOTIDINE 20 MG TABLET PO SCH ×2 (09:54→21:42)
[2019-08-20] MEDS: NICOTINE 7 MG/24 HOURS TOPICAL PATCH TD SCH (09:55)
[2019-08-20] MEDS: MELATONIN 5 MG TABLETS PO SCH (21:11)
[2019-08-20] MEDS: THIAMINE HCL 100 MG TABLET (FP) PO SCH (21:11)
[2019-08-20] MEDS: DOXEPIN HCL 25 MG CAPSULE PO SCH (21:12)
[2019-08-21] MEDS ORDERED: PT OWN MED DRAWER 7, Y5N ONE ×3 (05:13→21:47)
[2019-08-21] MEDS: CLOTRIMAZOLE 10 MG TROCHE PO SCH ×4 (06:57→21:20)
[2019-08-21] MEDS: NICOTINE 7 MG/24 HOURS TOPICAL PATCH TD SCH (10:14)
[2019-08-21] MEDS: METHADONE HCL 40 MG DISPERSABLE TABLET PO SCH (10:14)
[2019-08-21] MEDS: PRENATAL VITAMINS W/ FOLIC ACID TABLET (FP) PO SCH (10:14)
[2019-08-21] MEDS: FAMOTIDINE 20 MG TABLET PO SCH ×2 (10:14→21:19)
[2019-08-21] MEDS: THIAMINE HCL 100 MG TABLET (FP) PO SCH (21:18)
[2019-08-21] MEDS: MELATONIN 5 MG TABLETS PO SCH (21:18)
[2019-08-21] MEDS: DOXEPIN HCL 25 MG CAPSULE PO SCH (21:19)
[2019-08-22] MEDS ORDERED: PT OWN MED DRAWER 7, Y5N ONE ×2 (05:15→08:37)
[2019-08-22] MEDS: CLOTRIMAZOLE 10 MG TROCHE PO SCH ×2 (07:16→09:47)
[2019-08-22] MEDS: METHADONE HCL 40 MG DISPERSABLE TABLET PO SCH (09:43)
[2019-08-22] MEDS: NICOTINE 7 MG/24 HOURS TOPICAL PATCH TD SCH (09:45)
[2019-08-22] MEDS: FAMOTIDINE 20 MG TABLET PO SCH ×2 (09:45→21:22)
[2019-08-22] MEDS: PRENATAL VITAMINS W/ FOLIC ACID TABLET (FP) PO SCH (09:45)
[2019-08-22] MEDS: THIAMINE HCL 100 MG TABLET (FP) PO SCH (21:22)
[2019-08-22] MEDS: MELATONIN 5 MG TABLETS PO SCH (21:22)
[2019-08-22] MEDS: DOXEPIN HCL 25 MG CAPSULE PO SCH (21:23)
[2019-08-23] MEDS: METHADONE HCL 40 MG DISPERSABLE TABLET PO SCH (09:07)
[2019-08-23] MEDS: NICOTINE 7 MG/24 HOURS TOPICAL PATCH TD SCH (09:08)
[2019-08-23] MEDS: PRENATAL VITAMINS W/ FOLIC ACID TABLET (FP) PO SCH (09:09)
[2019-08-23] MEDS: FAMOTIDINE 20 MG TABLET PO SCH ×2 (09:09→21:38)
[2019-08-23] MEDS ORDERED: PT OWN MED DRAWER 7, Y5N ONE (19:55)
[2019-08-23] MEDS: THIAMINE HCL 100 MG TABLET (FP) PO SCH (21:36)
[2019-08-23] MEDS: MELATONIN 5 MG TABLETS PO SCH (21:36)
[2019-08-23] MEDS: DOXEPIN HCL 25 MG CAPSULE PO SCH (21:37)
[2019-08-24] MEDS: METHADONE HCL 40 MG DISPERSABLE TABLET PO SCH (09:15)
[2019-08-24] MEDS: NICOTINE 7 MG/24 HOURS TOPICAL PATCH TD SCH (09:16)
[2019-08-24] MEDS: PRENATAL VITAMINS W/ FOLIC ACID TABLET (FP) PO SCH (09:16)
[2019-08-24] MEDS: FAMOTIDINE 20 MG TABLET PO SCH ×2 (09:17→21:21)
[2019-08-24] MEDS ORDERED: PT OWN MED DRAWER 7, Y5N ONE (20:08)
[2019-08-24] MEDS: DOXEPIN HCL 25 MG CAPSULE PO SCH (21:21)
[2019-08-24] MEDS: THIAMINE HCL 100 MG TABLET (FP) PO SCH (21:21)
[2019-08-24] MEDS: MELATONIN 5 MG TABLETS PO SCH (21:22)
[2019-08-25] MEDS: PRENATAL VITAMINS W/ FOLIC ACID TABLET (FP) PO SCH (09:12)
[2019-08-25] MEDS: METHADONE HCL 40 MG DISPERSABLE TABLET PO SCH (09:12)
[2019-08-25] MEDS: FAMOTIDINE 20 MG TABLET PO SCH ×2 (09:13→21:16)
[2019-08-25] MEDS: NICOTINE 7 MG/24 HOURS TOPICAL PATCH TD SCH (09:13)
[2019-08-25] MEDS ORDERED: PT OWN MED DRAWER 7, Y5N ONE (10:06)
[2019-08-25] MEDS: DOXEPIN HCL 25 MG CAPSULE PO SCH (21:16)
[2019-08-25] MEDS: THIAMINE HCL 100 MG TABLET (FP) PO SCH (21:16)
[2019-08-25] MEDS: MELATONIN 5 MG TABLETS PO SCH (21:16)
[2019-08-26] MEDS: NICOTINE 7 MG/24 HOURS TOPICAL PATCH TD SCH (09:18)
[2019-08-26] MEDS: FAMOTIDINE 20 MG TABLET PO SCH ×2 (09:18→21:22)
[2019-08-26] MEDS: PRENATAL VITAMINS W/ FOLIC ACID TABLET (FP) PO SCH (09:18)
[2019-08-26] MEDS: METHADONE HCL 40 MG DISPERSABLE TABLET PO SCH (09:19)
[2019-08-26] MEDS: MELATONIN 5 MG TABLETS PO SCH (21:22)
[2019-08-26] MEDS: DOXEPIN HCL 25 MG CAPSULE PO SCH (21:22)
[2019-08-26] MEDS: THIAMINE HCL 100 MG TABLET (FP) PO SCH (21:22)
[2019-08-27] MEDS: NICOTINE 7 MG/24 HOURS TOPICAL PATCH TD SCH (09:27)
[2019-08-27] MEDS: METHADONE HCL 40 MG DISPERSABLE TABLET PO SCH (09:27)
[2019-08-27] MEDS: PRENATAL VITAMINS W/ FOLIC ACID TABLET (FP) PO SCH (09:28)
[2019-08-27] MEDS: FAMOTIDINE 20 MG TABLET PO SCH ×2 (09:29→21:08)
[2019-08-27] MEDS: MELATONIN 5 MG TABLETS PO SCH (21:07)
[2019-08-27] MEDS: THIAMINE HCL 100 MG TABLET (FP) PO SCH (21:08)
[2019-08-27] MEDS: DOXEPIN HCL 25 MG CAPSULE PO SCH (21:08)
[2019-08-28] MEDS: METHADONE HCL 40 MG DISPERSABLE TABLET PO SCH (09:32)
[2019-08-28] MEDS: PRENATAL VITAMINS W/ FOLIC ACID TABLET (FP) PO SCH (09:34)
[2019-08-28] MEDS: NICOTINE 7 MG/24 HOURS TOPICAL PATCH TD SCH (09:34)
[2019-08-28] MEDS: FAMOTIDINE 20 MG TABLET PO SCH ×2 (09:34→21:17)
[2019-08-28] MEDS ORDERED: PT OWN MED DRAWER 7, Y5N ONE (18:29)
[2019-08-28] MEDS: MELATONIN 5 MG TABLETS PO SCH (21:17)
[2019-08-28] MEDS: DOXEPIN HCL 25 MG CAPSULE PO SCH (21:17)
[2019-08-28] MEDS: THIAMINE HCL 100 MG TABLET (FP) PO SCH (21:17)
[2019-08-29] MEDS: PRENATAL VITAMINS W/ FOLIC ACID TABLET (FP) PO SCH (09:32)
[2019-08-29] MEDS: METHADONE HCL 40 MG DISPERSABLE TABLET PO SCH (09:32)
[2019-08-29] MEDS: NICOTINE 7 MG/24 HOURS TOPICAL PATCH TD SCH (09:33)
[2019-08-29] MEDS: FAMOTIDINE 20 MG TABLET PO SCH ×2 (09:33→21:11)
[2019-08-29] MEDS: THIAMINE HCL 100 MG TABLET (FP) PO SCH (21:11)
[2019-08-29] MEDS: DOXEPIN HCL 25 MG CAPSULE PO SCH (21:11)
[2019-08-29] MEDS: MELATONIN 5 MG TABLETS PO SCH (21:12)
[2019-08-30 06:47] VITALS: BP 131/81; PULSE 84; TEMP 98.2
[2019-08-30] MEDS: PRENATAL VITAMINS W/ FOLIC ACID TABLET (FP) PO SCH (09:08)
[2019-08-30] MEDS: METHADONE HCL 40 MG DISPERSABLE TABLET PO SCH (09:08)
[2019-08-30] MEDS: FAMOTIDINE 20 MG TABLET PO SCH (09:09)
[2019-08-30] MEDS: NICOTINE 7 MG/24 HOURS TOPICAL PATCH TD SCH (09:10)
== END 2019-08-30 09:28 | disposition home or self-care (01) | DRG 772 ==
LOC: YASAS 11:40 → Y3E 11:41
PROVIDERS: ADMIT Allergy & Immunology; ATTEND Allergy & Immunology
PROC: HZ42ZZZ Group Counseling for Substance Abuse Treatment, Cognitive-Behavioral (ICD-10-PCS; principal; 2019-08-12)
DX: F10.20 Alcohol dependence, uncomplicated (principal); F11.20 Opioid dependence, uncomplicated; F14.20 Cocaine dependence, uncomplicated; F17.210 Nicotine dependence, cigarettes, uncomplicated; F32.9 Major depressive disorder, single episode, unspecified; B37.0 Candidal stomatitis; B18.2 Chronic viral hepatitis C

== ENCOUNTER 2020-03-19 12:09 | Inpatient (IN) | payer OTHER ==
[2020-03-19 13:04] VITALS: BMI 22.1
[2020-03-19] MEDS ORDERED: BISMUTH SUBSALICYLATE 524 MG/30 ML UD PO PRN (13:37)
[2020-03-19] MEDS ORDERED: MENTHOL/PHENOL 1 EACH UD MM PRN (13:37)
[2020-03-19] MEDS ORDERED: ONDANSETRON *ODT* 4 MG TABLET SL PRN (13:37)
[2020-03-19] MEDS ORDERED: MAGNESIUM HYDROX 2400MG/30ML ORAL SUSPENSION 30 ML CUP PO PRN (13:37)
[2020-03-19] MEDS ORDERED: NICOTINE POLACRILEX 2 MG GUM BUC PRN (13:37)
[2020-03-19] MEDS ORDERED: MAG HYDROX/AL HYDROX/SIMETH 30 ML UNIT-DOSE CUP PO PRN (13:37)
[2020-03-19] MEDS ORDERED: MAGNESIUM CITRATE 300 ML BOTTLE PO PRN (13:37)
[2020-03-19] MEDS ORDERED: METHOCARBAMOL 500 MG TABLET PO PRN (13:37)
[2020-03-19] MEDS ORDERED: ACETAMINOPHEN 325 MG TABLET (FP) PO PRN ×2 (13:37)
[2020-03-19] MEDS ORDERED: IBUPROFEN 400 MG TABLET (FP) PO PRN (13:37)
[2020-03-19] MEDS: chlordiazePOXIDE HCL 25 MG CAPSULE PO SCH ×2 (17:39→22:23)
[2020-03-19] MEDS: hydrOXYzine PAMOATE 25 MG CAPSULE (FP) PO SCH ×3 (17:39→22:23)
[2020-03-19] MEDS: NICOTINE 21 MG/24 HOURS TOPICAL PATCH TD SCH (17:39)
[2020-03-19] MEDS: chlordiazePOXIDE HCL 25 MG CAPSULE PO PRN (19:39)
[2020-03-19] MEDS: MELATONIN 5 MG TABLETS PO SCH (22:23)
[2020-03-19] MEDS: THIAMINE HCL 100 MG TABLET (FP) PO SCH (22:23)
[2020-03-20] MEDS: hydrOXYzine PAMOATE 25 MG CAPSULE (FP) PO SCH (05:27)
[2020-03-20] MEDS: chlordiazePOXIDE HCL 25 MG CAPSULE PO SCH ×4 (05:27→22:06)
[2020-03-20] MEDS: METHADONE HCL 40 MG DISPERSABLE TABLET PO SCH (05:28)
[2020-03-20] MEDS ORDERED: METHADONE HCL 40 MG DISPERSABLE TABLET PO SCH (06:00)
[2020-03-20] MEDS: hydrOXYzine PAMOATE 25 MG CAPSULE (FP) PO PRN ×2 (10:29→17:13)
[2020-03-20] MEDS: PRENATAL VITAMINS W/ FOLIC ACID TABLET (FP) PO SCH (10:29)
[2020-03-20] MEDS: NICOTINE 21 MG/24 HOURS TOPICAL PATCH TD SCH (10:29)
[2020-03-20 11:38] LABS: HEMATOCRIT 37.8 % (35.4-49); HEMOGLOBIN 12.8 GM/dL (11.7-16.9); MCH 28.8 pg (25.7-33.7); MCHC 33.9 g/dl (32.0-35.9); MEAN CELL VOLUME 85.1 fl (80-96); MEAN PLT VOLUME 8.7 fl (7.5-11.1); PLATELET COUNT 258 K/MM3 (134-434); RBC 4.45 M/mm3 (4.00-5.60); RDW 14.2 % (11.9-15.9); WHITE BLOOD COUNT 3.4 K/mm3 (4.0-10.0)
[2020-03-20 11:48] LABS: POTASSIUM 3.9 mmol/L (3.5-5.1)
[2020-03-20 12:14] LABS: ALBUMIN 3.3 g/dl (3.4-5.0); BLOOD UREA NITROGEN 9.9 mg/dL (7-18); CALCIUM 9.2 mg/dL (8.5-10.1); CREATININE 0.9 mg/dL (0.55-1.3)
[2020-03-20 12:15] LABS: BILIRUBIN,TOTAL 0.2 mg/dL (0.2-1)
[2020-03-20 12:19] LABS: TOT PROT 6.4 g/dl (6.4-8.2)
[2020-03-20] MEDS: chlordiazePOXIDE HCL 25 MG CAPSULE PO PRN ×2 (13:07→19:16)
[2020-03-20] MEDS: MELATONIN 5 MG TABLETS PO SCH (22:07)
[2020-03-20] MEDS: THIAMINE HCL 100 MG TABLET (FP) PO SCH (22:07)
[2020-03-21] MEDS: chlordiazePOXIDE HCL 25 MG CAPSULE PO SCH ×4 (05:11→22:25)
[2020-03-21] MEDS: METHADONE HCL 40 MG DISPERSABLE TABLET PO SCH (05:12)
[2020-03-21] MEDS: PRENATAL VITAMINS W/ FOLIC ACID TABLET (FP) PO SCH (10:58)
[2020-03-21] MEDS: NICOTINE 21 MG/24 HOURS TOPICAL PATCH TD SCH (10:58)
[2020-03-21] MEDS: chlordiazePOXIDE HCL 25 MG CAPSULE PO PRN ×2 (12:45→19:30)
[2020-03-21] MEDS: MELATONIN 5 MG TABLETS PO SCH (22:25)
[2020-03-21] MEDS: THIAMINE HCL 100 MG TABLET (FP) PO SCH (22:25)
[2020-03-21] MEDS: hydrOXYzine PAMOATE 25 MG CAPSULE (FP) PO PRN (22:28)
[2020-03-22] MEDS: chlordiazePOXIDE HCL 10 MG CAPSULE PO SCH ×4 (06:15→22:23)
[2020-03-22] MEDS: METHADONE HCL 40 MG DISPERSABLE TABLET PO SCH (06:15)
[2020-03-22] MEDS: chlordiazePOXIDE HCL 10 MG CAPSULE PO PRN ×3 (08:39→19:48)
[2020-03-22] MEDS: NICOTINE 21 MG/24 HOURS TOPICAL PATCH TD SCH (10:37)
[2020-03-22] MEDS: PRENATAL VITAMINS W/ FOLIC ACID TABLET (FP) PO SCH (10:37)
[2020-03-22] MEDS: hydrOXYzine PAMOATE 25 MG CAPSULE (FP) PO PRN (19:48)
[2020-03-22] MEDS: MELATONIN 5 MG TABLETS PO SCH (22:23)
[2020-03-22] MEDS: THIAMINE HCL 100 MG TABLET (FP) PO SCH (22:23)
[2020-03-23] MEDS: chlordiazePOXIDE HCL 10 MG CAPSULE PO SCH ×2 (05:55→18:32)
[2020-03-23] MEDS: METHADONE HCL 40 MG DISPERSABLE TABLET PO SCH (05:56)
[2020-03-23] MEDS: PRENATAL VITAMINS W/ FOLIC ACID TABLET (FP) PO SCH (10:32)
[2020-03-23] MEDS: NICOTINE 21 MG/24 HOURS TOPICAL PATCH TD SCH (10:33)
[2020-03-23] MEDS: MELATONIN 5 MG TABLETS PO SCH (22:34)
[2020-03-23] MEDS: THIAMINE HCL 100 MG TABLET (FP) PO SCH (22:35)
[2020-03-24] MEDS ORDERED: chlordiazePOXIDE HCL 10 MG CAPSULE PO ONE (05:00)
[2020-03-24] MEDS: METHADONE HCL 40 MG DISPERSABLE TABLET PO SCH (05:28)
[2020-03-24 09:58] VITALS: BP 124/86; PULSE 94; TEMP 96.9
[2020-03-24] MEDS: NICOTINE 21 MG/24 HOURS TOPICAL PATCH TD SCH (10:24)
[2020-03-24] MEDS: PRENATAL VITAMINS W/ FOLIC ACID TABLET (FP) PO SCH (10:24)
== END 2020-03-24 12:00 | disposition other institution (70) | DRG 773 ==
LOC: YASAS 12:09 → Y3N 15:38
PROVIDERS: ADMIT Allergy & Immunology; ATTEND Allergy & Immunology
PROC: HZ2ZZZZ Detoxification Services for Substance Abuse Treatment (ICD-10-PCS; principal; 2020-03-19)
DX: F10.230 Alcohol dependence with withdrawal, uncomplicated (principal); F11.20 Opioid dependence, uncomplicated; F14.20 Cocaine dependence, uncomplicated; F17.210 Nicotine dependence, cigarettes, uncomplicated; F32.9 Major depressive disorder, single episode, unspecified; B18.2 Chronic viral hepatitis C; Z59.0 Homelessness
CPT/HCPCS: 36415; 80053; 82947; 85027; 86780; 87389; 93005; 93010; C9803; U0003

== ENCOUNTER 2020-03-24 12:09 | Inpatient (IN) | payer OTHER ==
[2020-03-24] MEDS ORDERED: hydrOXYzine PAMOATE 25 MG CAPSULE (FP) PO PRN (15:17)
[2020-03-24] MEDS ORDERED: MAGNESIUM HYDROX 2400MG/30ML ORAL SUSPENSION 30 ML CUP PO PRN (15:17)
[2020-03-24] MEDS ORDERED: ACETAMINOPHEN 325 MG TABLET (FP) PO PRN (15:17)
[2020-03-24] MEDS ORDERED: IBUPROFEN 400 MG TABLET (FP) PO PRN (15:17)
[2020-03-24] MEDS ORDERED: LOPERAMIDE HCL 2 MG CAPSULE PO PRN (15:17)
[2020-03-24] MEDS ORDERED: guaiFENesin 200 MG/10 ML 10 ML UNIT-DOSE CUPS PO PRN (15:17)
[2020-03-24] MEDS ORDERED: MAG HYDROX/AL HYDROX/SIMETH 30 ML UNIT-DOSE CUP PO PRN (15:17)
[2020-03-24] MEDS ORDERED: MAGNESIUM CITRATE 300 ML BOTTLE PO PRN (15:17)
[2020-03-24] MEDS ORDERED: P-EPHED 60MG/TRIPROLIDI 2.5MG TABLET PO PRN (15:17)
[2020-03-24] MEDS ORDERED: MENTHOL/PHENOL 1 EACH UD MM PRN (15:17)
[2020-03-24] MEDS ORDERED: NICOTINE POLACRILEX 2 MG GUM BUC PRN (15:17)
[2020-03-24] MEDS: MELATONIN 5 MG TABLETS PO SCH (21:31)
[2020-03-24] MEDS: THIAMINE HCL 100 MG TABLET (FP) PO SCH (21:31)
[2020-03-25] MEDS ORDERED: METHADONE HCL 10 MG TABLET PO SCH (06:00)
[2020-03-25] MEDS ORDERED: METHADONE HCL 40 MG DISPERSABLE TABLET PO SCH (06:15)
[2020-03-25] MEDS: METHADONE HCL 40 MG DISPERSABLE TABLET PO SCH (06:51)
[2020-03-25] MEDS: NICOTINE 21 MG/24 HOURS TOPICAL PATCH TD SCH (09:37)
[2020-03-25] MEDS: PRENATAL VITAMINS W/ FOLIC ACID TABLET (FP) PO SCH (09:37)
[2020-03-25] MEDS: MELATONIN 5 MG TABLETS PO SCH (21:01)
[2020-03-25] MEDS: THIAMINE HCL 100 MG TABLET (FP) PO SCH (21:01)
[2020-03-26] MEDS: METHADONE HCL 40 MG DISPERSABLE TABLET PO SCH (06:16)
[2020-03-26] MEDS: PRENATAL VITAMINS W/ FOLIC ACID TABLET (FP) PO SCH (10:01)
[2020-03-26] MEDS: NICOTINE 21 MG/24 HOURS TOPICAL PATCH TD SCH (10:01)
[2020-03-26] MEDS: NYSTATIN 500,000 UNITS/5 ML SUSPENSION PO SCH ×2 (18:18→23:11)
[2020-03-26] MEDS: THIAMINE HCL 100 MG TABLET (FP) PO SCH (21:53)
[2020-03-26] MEDS: MELATONIN 5 MG TABLETS PO SCH (21:53)
[2020-03-27] MEDS: NYSTATIN 500,000 UNITS/5 ML SUSPENSION PO SCH ×2 (06:01→12:27)
[2020-03-27] MEDS: METHADONE HCL 40 MG DISPERSABLE TABLET PO SCH (06:01)
[2020-03-27 06:48] VITALS: BP 122/70; PULSE 88; TEMP 97.3
[2020-03-27] MEDS: PRENATAL VITAMINS W/ FOLIC ACID TABLET (FP) PO SCH (10:46)
[2020-03-27] MEDS: NICOTINE 21 MG/24 HOURS TOPICAL PATCH TD SCH (10:46)
== END 2020-03-27 15:35 | disposition left against medical advice (07) | DRG 770 ==
LOC: YASAS 12:09 → Y3W 12:10
PROVIDERS: ADMIT Allergy & Immunology; ATTEND Allergy & Immunology
PROC: HZ42ZZZ Group Counseling for Substance Abuse Treatment, Cognitive-Behavioral (ICD-10-PCS; principal; 2020-03-24)
DX: F10.20 Alcohol dependence, uncomplicated (principal); F11.20 Opioid dependence, uncomplicated; F14.20 Cocaine dependence, uncomplicated; F17.210 Nicotine dependence, cigarettes, uncomplicated; J02.9 Acute pharyngitis, unspecified; B37.0 Candidal stomatitis; B18.2 Chronic viral hepatitis C; R73.9 Hyperglycemia, unspecified
CPT/HCPCS: 82962; 87070; C9803; U0003